=== PATIENT | female | born 1930 | race Caucasian/White ===

== ENCOUNTER 2018-09-20 19:41 | Emergency (ER) | payer MEDICAID ==
[~2018-09-20] VITALS: Ht 149.9 cm; Wt 47.6 kg
[2018-09-20 20:02] VITALS: Ht 149.9 cm; Wt 47.6 kg
[2018-09-20 23:05] VITALS: BP 179/7
== END 2018-09-20 23:05 | disposition home or self-care (01) ==
LOC: ED 19:41
DX: S52.532A Colles' fracture of left radius, initial encounter for closed fracture (principal); S50.02XA Contusion of left elbow, initial encounter; S09.8XXA Other specified injuries of head, initial encounter; I10 Essential (primary) hypertension; W01.0XXA Fall on same level from slipping, tripping and stumbling without subsequent striking against object, initial encounter; Y93.89 Activity, other specified; Y92.89 Other specified places as the place of occurrence of the external cause; Y99.8 Other external cause status